=== PATIENT | male | born 1990 | race Caucasian/White ===

== ENCOUNTER 2021-04-10 16:32 | Emergency (ER) | payer BC, OTHER ==
[2021-04-10 18:24] LABS: Hep C IgG Ab Non-Reactive (NonReactive); Hep C Index 0.06 S/CO (0-0.79)
[2021-04-10 19:48] LABS: HBSAB Concentration 28.29 mIU/mL; Hep B Surf AB Reactive (NonReactive)
[2021-04-11 03:00] LABS: HIV (1/2) Antibody/Antigen Non-Reactive (NonReactive); HIV 1/2 INDEX 0.05 S/CO (<1.00)
== END 2021-04-10 17:25 | disposition home or self-care (01) ==
LOC: ERS 16:32
DX: Z77.21 Contact with and (suspected) exposure to potentially hazardous body fluids (principal)
CPT/HCPCS: 86706; 86803; 87389; 99283

== ENCOUNTER 2022-03-18 09:12 | Emergency (ER) | payer BC, OTHER ==
[2022-03-18 10:38] LABS: HIV (1/2) Antibody/Antigen Non-Reactive (NonReactive); HIV 1/2 INDEX 0.28 S/CO (<1.00); Hep C IgG Ab Non-Reactive (NonReactive); Hep C Index 0.07 S/CO (0-0.79)
[2022-03-18 10:42] LABS: HBSAB Concentration 17.66 mIU/mL; Hep B Surf AB Reactive (NonReactive)
== END 2022-03-18 09:32 | disposition home or self-care (01) ==
LOC: ERS 09:12
DX: Z77.21 Contact with and (suspected) exposure to potentially hazardous body fluids (principal)
CPT/HCPCS: 36415; 99283